=== PATIENT | female | born 1945 | race Caucasian/White ===

== ENCOUNTER 2022-09-20 09:47 | Outpatient (CLI) | payer MEDICARE, OTHER | END 2022-09-20 09:48 | disposition home or self-care (01) | LOC: CSHCT 09:47 | PROVIDERS: ATTEND Internal Medicine Cardiovascular Disease | DX: Z01.810 Encounter for preprocedural cardiovascular examination (principal); I48.0 Paroxysmal atrial fibrillation | CPT/HCPCS: 71275 ==